=== PATIENT | female | born 1935 | race African-American/Black ===

== ENCOUNTER 2023-10-25 23:15 | Inpatient (IN) | payer MEDICARE, OTHER ==
[~2023-10-25] VITALS: Ht 172.7 cm; Wt 63.5 kg
[2023-10-25] MEDS ORDERED: DAPA5TAB PO (23:46)
[2023-10-25] MEDS ORDERED: INSU3INS6 SQ (23:46)
[2023-10-25] MEDS ORDERED: ATOR20TA PO (23:46)
[2023-10-25] MEDS ORDERED: HYDR25TA4 (23:46)
[2023-10-25] MEDS ORDERED: CLOP75TA33 PO (23:46)
[2023-10-25] MEDS ORDERED: AMLO5TAB4 PO (23:46)
[2023-10-25] MEDS ORDERED: ASPI81TA31 PO (23:46)
[2023-10-25 23:49] LABS: BASOPHILS % (AUTO) 0.2 % (0.0-2.0); EOSINOPHILS # (AUTO) 0.2 K/uL (0.0-0.7); EOSINOPHILS % (AUTO) 1.5 % (0.0-7.0); HEMOGLOBIN 9.3 g/dL (10.9-14.3); LYMPHOCYTES # (AUTO) 1.1 K/uL (0.8-4.8); LYMPHOCYTES % (AUTO) 10.5 % (20.5-51.5); MEAN CORPUSCULAR HEMOGLOBIN 27.7 uug (24.7-32.8); MEAN CORPUSCULAR HGB CONC 33 g/dL (32.3-35.6); MEAN CORPUSCULAR VOLUME 83.2 fL (75.5-95.3); MONOCYTES # (AUTO) 0.7 K/uL (0.1-1.30); MONOCYTES % (AUTO) 6.4 % (0.0-11.0); NEUTROPHILS # (AUTO) 8.5 K/uL (1.8-8.9); NEUTROPHILS % (AUTO) 81.4 % (38.5-71.5); PLATELET COUNT (AUTO) 139 K/uL (179-408); RED BLOOD CELL COUNT(AUTO) 3.36 MIL/uL (3.63-4.92); RED CELL DISTRIBUTION WIDTH 16.1 % (12.3-17.7); WHITE BLOOD COUNT (AUTO) 10.4 K/uL (3.8-11.8)
[2023-10-25] MEDS ORDERED: CEFTRIAXONE /D5W 50ML IVPB **ER PYXIS IV ONE (23:53)
[2023-10-25 23:55] LABS: DIFFERENTIAL COMMENT 1
[2023-10-25] MEDS: IV NORMAL SALINE 1000 ML BAG IV ONE (23:59)
[2023-10-25] MEDS: CEFTRIAXONE 1 G in IV DEXTROSE 5% 50 ML IV ONE (23:59)
[2023-10-26 00:01] LABS: CALCIUM 8.9 mg/dL (8.5-10.1); CARBON DIOXIDE 24 mmol/L (21-32); CHLORIDE 105 mmol/L (98-107); CREATININE 3.1 mg/dL (0.6-1.3); GLUCOSE 150 mg/dL (74-106); POTASSIUM 3.8 mmol/L (3.5-5.1); SODIUM SERUM 139 mmol/L (136-145); UREA NITROGEN, BLOOD 55 mg/dL (7-18)
[2023-10-26 00:18] LABS: ALKALINE PHOSPHATASE 66 U/L (50-136); ASPARTATE AMINOTRANSFERASE 8 U/L (15-37); BILIRUBIN,DIRECT 0.2 mg/dL (0.0-0.2); BILIRUBIN,TOTAL 0.7 mg/dL (0.2-1.0); NT-PRO BNP 2671 pg/mL (0-125); TOTAL PROTEIN, SERUM 7.7 g/dL (6.4-8.2)
[2023-10-26 00:19] LABS: ALANINE AMINOTRANSFERASE 6 U/L (14-59)
[2023-10-26 00:23] LABS: *BILIRUBIN,URIN NEGATIVE (NEGATIVE); *BLOOD, URINE 1+ (NEGATIVE); *COLOR,URINE YELLOW (YELLOW); *KETONES,URINE NEGATIVE (NEGATIVE); *PROTEIN,URINE NEGATIVE (NEGATIVE); *UROBILINOGEN,URINE 0.2 E.U./dl (NORMAL); LEUKOCYTE ESTERASE ,URINE 3+ (NEGATIVE); NITRITE, URINE NEGATIVE (NEGATIVE); UGLUCOSE TRACE (NEGATIVE)
[2023-10-26 00:31] LABS: *CLARITY,URINE SLIGHTLY CLOUDY (CLEAR)
[2023-10-26 01:27] LABS: BACTERIA,URINE MANY /HPF (NONE SEEN); SQUAMOUS EPITHELIAL CELL,UR NONE SEEN /HPF (NONE SEEN); WBC,URINE TNTC /HPF (0-3); YEAST,URINE MANY /HPF (NONE SEEN)
[2023-10-26] MEDS ORDERED: MAGNESIUM HYDROXIDE 30 ML LIQUID UDC PO PRN (01:45)
[2023-10-26] MEDS ORDERED: hydrALAZINE HCL 20 MG/1 ML VIAL IV PRN (01:45)
[2023-10-26] MEDS ORDERED: DEXTROSE 50% 50 ML DISP.SYRIN IV PRN (01:45)
[2023-10-26] MEDS ORDERED: ONDANSETRON 4 MG/2 ML VIAL IV PRN (01:45)
[2023-10-26] MEDS ORDERED: ACETAMINOPHEN 325 MG TABLET PO PRN (01:45)
[2023-10-26 04:03] VITALS: BP 148/61; TEMP 98; O2SAT 98
[2023-10-26] MEDS: IV NS 1000 ML 1,000 ML IV SCH (04:08)
[2023-10-26] MEDS ORDERED: CEFEPIME HCL 1 G VIAL ONE (05:41)
[2023-10-26] MEDS: CEFEPIME HCL 1 G in IV DEXTROSE 5% 50 ML IV ONE (05:50)
[2023-10-26] MEDS: BLOOD SUGAR DIAGNOSTIC 1 EACH STRIP VI SCH (06:43)
[2023-10-26 07:36] VITALS: BP 138/52; TEMP 98.2; O2SAT 98
[2023-10-26] MEDS: INSULIN REGULAR, HUMAN 300 UNIT/3 ML VIAL SQ PRN (08:32)
[2023-10-26] MEDS: CLOPIDOGREL 75 MG TABLET PO SCH (08:35)
[2023-10-26] MEDS: DOCUSATE SODIUM 100 MG CAPSULE PO SCH (08:35)
[2023-10-26] MEDS: HEPARIN SODIUM,PORCINE 5,000 UNITS/ML VIAL SQ SCH (08:36)
[2023-10-26] MEDS: ASPIRIN 81 MG TAB.CHEW PO SCH (08:40)
[2023-10-26] MEDS: AMLODIPINE 5 MG TABLET PO ONE (08:40)
[2023-10-26] MEDS ORDERED: HYDROCHLOROTHIAZIDE 25 MG TABLET PO SCH ×2 (09:00)
[2023-10-26] MEDS ORDERED: ATORVASTATIN 20 MG TABLET PO SCH (09:00)
[2023-10-26] MEDS ORDERED: AMLODIPINE 10 MG TABLET PO SCH (09:00)
[2023-10-26] MEDS ORDERED: AMLODIPINE 5 MG TABLET PO SCH (09:00)
[2023-10-26 11:33] VITALS: BP 114/60; TEMP 98.4; O2SAT 96
[2023-10-26] MEDS ORDERED: DOCU100T2 PO (11:57)
[2023-10-26] MEDS ORDERED: FERR-68 PO (11:59)
[2023-10-26] MEDS ORDERED: PANT40TA2 PO (12:05)
[2023-10-26] MEDS ORDERED: INSU100V28 SUBCUT (12:10)
[2023-10-26] MEDS ORDERED: CRAN450T9 PO (12:10)
[2023-10-26] MEDS ORDERED: CEFEPIME HCL 1 G in IV DEXTROSE 5% 50 ML IV SCH (14:00)
[2023-10-26 15:33] LABS: *BILIRUBIN,URIN NEGATIVE (NEGATIVE); *BLOOD, URINE 3+ (NEGATIVE); *CLARITY,URINE CLOUDY (CLEAR); *COLOR,URINE YELLOW (YELLOW); *KETONES,URINE NEGATIVE (NEGATIVE); *PROTEIN,URINE 2+ (NEGATIVE); *UROBILINOGEN,URINE 0.2 E.U./dl (NORMAL); LEUKOCYTE ESTERASE ,URINE 2+ (NEGATIVE); NITRITE, URINE NEGATIVE (NEGATIVE)
[2023-10-26 15:39] VITALS: BP 121/46; TEMP 99.1; O2SAT 99
[2023-10-26 15:47] LABS: *CREATININE,URINE 75.7 mg/dL (30-125); *URINE TOTAL PROTEIN RANDOM 109.3 mg/dL (<150/24HR)
[2023-10-26 15:55] LABS: UGLUCOSE 2+ (NEGATIVE)
[2023-10-26 16:12] LABS: BACTERIA,URINE MODERATE /HPF (NONE SEEN); RBC,URINE 20-50 /HPF (0-3); SQUAMOUS EPITHELIAL CELL,UR FEW /HPF (NONE SEEN); WBC,URINE 80-100 /HPF (0-3); YEAST,URINE BUDDING YEAST /HPF (NONE SEEN)
[2023-10-26 16:27] LABS: ALANINE AMINOTRANSFERASE 15 U/L (14-59); ALBUMIN 2.8 g/dL (3.4-5.0); ALKALINE PHOSPHATASE 67 U/L (50-136); ASPARTATE AMINOTRANSFERASE 7 U/L (15-37); BILIRUBIN,TOTAL 0.6 mg/dL (0.2-1.0); CALCIUM 8.6 mg/dL (8.5-10.1); CARBON DIOXIDE 24 mmol/L (21-32); CHLORIDE 106 mmol/L (98-107); CREATININE 2.6 mg/dL (0.6-1.3); GLUCOSE 182 mg/dL (74-106); POTASSIUM 3.7 mmol/L (3.5-5.1); SODIUM SERUM 141 mmol/L (136-145); TOTAL PROTEIN, SERUM 7.6 g/dL (6.4-8.2); UREA NITROGEN, BLOOD 46 mg/dL (7-18)
[2023-10-26 20:00] VITALS: TEMP 98
[2023-10-26] MEDS: ATORVASTATIN 20 MG TABLET PO SCH (20:49)
[2023-10-26] MEDS: INSULIN REGULAR, HUMAN 300 UNITS/3 ML VIAL SQ PRN (20:51)
[2023-10-27] VITALS (7 sets, daily range): BP systolic 106–145; BP diastolic 44–51; TEMP 98–98.6; O2SAT 96–99
[2023-10-27] MEDS: CEFEPIME HCL 1 G in IV DEXTROSE 5% 50 ML IV SCH (05:47)
[2023-10-27 07:24] LABS: BASOPHILS % (AUTO) 0.3 % (0.0-2.0); EOSINOPHILS # (AUTO) 0.4 K/uL (0.0-0.7); EOSINOPHILS % (AUTO) 4.8 % (0.0-7.0); HEMOGLOBIN 8.7 g/dL (10.9-14.3); LYMPHOCYTES # (AUTO) 0.8 K/uL (0.8-4.8); LYMPHOCYTES % (AUTO) 9.6 % (20.5-51.5); MEAN CORPUSCULAR HEMOGLOBIN 27.8 uug (24.7-32.8); MEAN CORPUSCULAR HGB CONC 33 g/dL (32.3-35.6); MEAN CORPUSCULAR VOLUME 83.6 fL (75.5-95.3); MONOCYTES # (AUTO) 0.5 K/uL (0.1-1.30); MONOCYTES % (AUTO) 6.2 % (0.0-11.0); NEUTROPHILS # (AUTO) 6.5 K/uL (1.8-8.9); NEUTROPHILS % (AUTO) 79.1 % (38.5-71.5); PLATELET COUNT (AUTO) 133 K/uL (179-408); RED BLOOD CELL COUNT(AUTO) 3.12 MIL/uL (3.63-4.92); RED CELL DISTRIBUTION WIDTH 15.6 % (12.3-17.7); WHITE BLOOD COUNT (AUTO) 8.2 K/uL (3.8-11.8)
[2023-10-27 07:42] LABS: DIFFERENTIAL COMMENT 1
[2023-10-27 07:45] LABS: ALANINE AMINOTRANSFERASE 15 U/L (14-59); ALBUMIN 2.4 g/dL (3.4-5.0); ALKALINE PHOSPHATASE 63 U/L (50-136); ASPARTATE AMINOTRANSFERASE 8 U/L (15-37); BILIRUBIN,TOTAL 0.5 mg/dL (0.2-1.0); CALCIUM 8.3 mg/dL (8.5-10.1); CARBON DIOXIDE 22 mmol/L (21-32); CHLORIDE 108 mmol/L (98-107); CREATINE KINASE, TOTAL 24 U/L (26-192); CREATININE 2.3 mg/dL (0.6-1.3); GLUCOSE 114 mg/dL (74-106); MAGNESIUM 2.4 mg/dL (1.8-2.4); PHOSPHOROUS 3.1 mg/dL (2.5-4.9); POTASSIUM 3.4 mmol/L (3.5-5.1); SODIUM SERUM 141 mmol/L (136-145); UREA NITROGEN, BLOOD 42 mg/dL (7-18)
[2023-10-27] MEDS: AMLODIPINE 5 MG TABLET PO SCH (09:29)
[2023-10-27] MEDS: POTASSIUM CHLORIDE 10 MEQ TAB.PRT.SR PO ONE (09:30)
[2023-10-27] MEDS ORDERED: POTASSIUM CHLORIDE 20 MEQ TAB.PRT.SR PO ONE (09:30)
[2023-10-27] MEDS ORDERED: TEMAZEPAM 15 MG CAPSULE PO PRN (21:30)
[2023-10-28] VITALS (7 sets, daily range): BP systolic 103–139; BP diastolic 44–62; TEMP 97.6–98.2; O2SAT 94–99
[2023-10-28 07:15] LABS: BASOPHILS % (AUTO) 0.4 % (0.0-2.0); EOSINOPHILS # (AUTO) 0.3 K/uL (0.0-0.7); EOSINOPHILS % (AUTO) 5.2 % (0.0-7.0); HEMATOCRIT 24.1 % (31.2-41.9); HEMOGLOBIN 8.1 g/dL (10.9-14.3); LYMPHOCYTES % (AUTO) 16.8 % (20.5-51.5); MEAN CORPUSCULAR HEMOGLOBIN 27.9 uug (24.7-32.8); MEAN CORPUSCULAR HGB CONC 34 g/dL (32.3-35.6); MEAN CORPUSCULAR VOLUME 83.1 fL (75.5-95.3); MONOCYTES # (AUTO) 0.6 K/uL (0.1-1.30); MONOCYTES % (AUTO) 9.6 % (0.0-11.0); NEUTROPHILS # (AUTO) 4.1 K/uL (1.8-8.9); PLATELET COUNT (AUTO) 137 K/uL (179-408); RED CELL DISTRIBUTION WIDTH 15.8 % (12.3-17.7)
[2023-10-28 07:30] LABS: CALCIUM 8.2 mg/dL (8.5-10.1); CARBON DIOXIDE 21 mmol/L (21-32); CHLORIDE 111 mmol/L (98-107); CREATININE 1.9 mg/dL (0.6-1.3); GLUCOSE 100 mg/dL (74-106); MAGNESIUM 2.4 mg/dL (1.8-2.4); PHOSPHOROUS 2.4 mg/dL (2.5-4.9); POTASSIUM 3.4 mmol/L (3.5-5.1); SODIUM SERUM 142 mmol/L (136-145); UREA NITROGEN, BLOOD 36 mg/dL (7-18)
[2023-10-28 07:44] LABS: DIFFERENTIAL COMMENT 1
[2023-10-28 08:06] LABS: PTH, INTACT 37 pg/mL (15-65)
[2023-10-28] MEDS: POTASSIUM CHLORIDE 10 MEQ TAB.PRT.SR PO ONE (12:39)
[2023-10-28] MEDS: NEUTRA PHOS PACKET PO ONE (16:07)
[2023-10-29] VITALS: BP 138/50; TEMP 97.8; O2SAT 95
[2023-10-29] MEDS: MORPHINE SULFATE 2 MG/1 ML DISP.SYRIN IVP PRN (01:36)
[2023-10-29 04:00] VITALS: BP 138/57; TEMP 97.6; O2SAT 95
[2023-10-29 07:40] LABS: CALCIUM 8.2 mg/dL (8.5-10.1); CARBON DIOXIDE 23 mmol/L (21-32); CHLORIDE 112 mmol/L (98-107); CREATININE 1.5 mg/dL (0.6-1.3); GLUCOSE 121 mg/dL (74-106); PHOSPHOROUS 2.8 mg/dL (2.5-4.9); POTASSIUM 3.7 mmol/L (3.5-5.1); SODIUM SERUM 143 mmol/L (136-145); UREA NITROGEN, BLOOD 35 mg/dL (7-18)
[2023-10-29 08:00] VITALS: BP 140/56; TEMP 98.1; O2SAT 96
[2023-10-29 12:02] VITALS: BP 133/45; TEMP 97.8; O2SAT 96
[2023-10-29 15:41] VITALS: BP 139/54; TEMP 97.5; O2SAT 97
[2023-10-29] MEDS: FLUCONAZOLE 200 MG/NS 100ML IV 100 MG in PREMIXED 1 EACH IV SCH (15:56)
[2023-10-29 20:00] VITALS: BP 142/52; TEMP 98.2; O2SAT 98
[2023-10-30 07:17] LABS: BASOPHILS # (AUTO) 0.1 K/UL (0.0-0.2); BASOPHILS % (AUTO) 1.1 % (0.0-2.0); EOSINOPHILS # (AUTO) 0.3 K/uL (0.0-0.7); EOSINOPHILS % (AUTO) 2.9 % (0.0-7.0); HEMATOCRIT 25.8 % (31.2-41.9); HEMOGLOBIN 8.3 g/dL (10.9-14.3); LYMPHOCYTES # (AUTO) 3.5 K/uL (0.8-4.8); MEAN CORPUSCULAR HGB CONC 32 g/dL (32.3-35.6); MONOCYTES # (AUTO) 2.1 K/uL (0.1-1.30); MONOCYTES % (AUTO) 20.3 % (0.0-11.0); NEUTROPHILS # (AUTO) 4.3 K/uL (1.8-8.9); NEUTROPHILS % (AUTO) 41.7 % (38.5-71.5); PLATELET COUNT (AUTO) 163 K/uL (179-408); RED BLOOD CELL COUNT(AUTO) 2.96 MIL/uL (3.63-4.92); RED CELL DISTRIBUTION WIDTH 16.3 % (12.3-17.7); WHITE BLOOD COUNT (AUTO) 10.2 K/uL (3.8-11.8)
[2023-10-30 07:24] LABS: DIFFERENTIAL COMMENT 1
[2023-10-30 07:34] LABS: CALCIUM 8.4 mg/dL (8.5-10.1); CARBON DIOXIDE 21 mmol/L (21-32); CHLORIDE 113 mmol/L (98-107); CREATININE 1.4 mg/dL (0.6-1.3); GLUCOSE 85 mg/dL (74-106); MAGNESIUM 2.3 mg/dL (1.8-2.4); PHOSPHOROUS 3.2 mg/dL (2.5-4.9); POTASSIUM 3.6 mmol/L (3.5-5.1); SODIUM SERUM 144 mmol/L (136-145); UREA NITROGEN, BLOOD 27 mg/dL (7-18)
[2023-10-30 11:28] VITALS: BP 136/49; TEMP 98.5; O2SAT 98
[2023-10-30] MEDS ORDERED: FLUC100T8 PO (11:47)
[2023-10-30 13:23] LABS: PLATELET ESTIMATE SLIGHT DECREASED
[2023-10-30 13:32] LABS: EOSINOPHILS % (MANUAL) 2 % (0-8); LYMPHOCYTES % (MANUAL) 34 % (20-40)
[2023-10-30 13:33] LABS: MONOCYTES % (MANUAL) 10 % (2-10); NEUTROPHILS % (MANUAL) 54 % (42-75)
== END 2023-10-30 16:35 | disposition home health service (06) | DRG 871 ==
LOC: ER 23:18 → TELE3 10-26 01:40 → MEDSURG3 10-29 13:05
PROVIDERS: ADMIT Internal Medicine; ATTEND Student in an Organized Health Care Education/Training Program
DX: A41.9 Sepsis, unspecified organism (principal); G92.8 Other toxic encephalopathy; N17.0 Acute kidney failure with tubular necrosis; J18.9 Pneumonia, unspecified organism; N39.0 Urinary tract infection, site not specified; I69.951 Hemiplegia and hemiparesis following unspecified cerebrovascular disease affecting right dominant side; E44.0 Moderate protein-calorie malnutrition; E86.0 Dehydration; F03.A0 Unspecified dementia, mild, without behavioral disturbance, psychotic disturbance, mood disturbance, and anxiety; E78.5 Hyperlipidemia, unspecified; Z79.4 Long term (current) use of insulin; Z79.82 Long term (current) use of aspirin; Z79.899 Other long term (current) drug therapy; I48.0 Paroxysmal atrial fibrillation; N25.0 Renal osteodystrophy; E11.22 Type 2 diabetes mellitus with diabetic chronic kidney disease; I12.9 Hypertensive chronic kidney disease with stage 1 through stage 4 chronic kidney disease, or unspecified chronic kidney disease; N18.9 Chronic kidney disease, unspecified; E87.6 Hypokalemia; D69.6 Thrombocytopenia, unspecified; D64.9 Anemia, unspecified; Z68.21 Body mass index [BMI] 21.0-21.9, adult; Z79.02 Long term (current) use of antithrombotics/antiplatelets; Z96.641 Presence of right artificial hip joint; R01.1 Cardiac murmur, unspecified; I44.7 Left bundle-branch block, unspecified
CPT/HCPCS: 36415; 70030-TC; 70450; 71045; 76770; 83605; 83735; 83970; 84100; 84155; 84165; 84300; 84484; 85025; 87040; 93005; 93307; G0378; J0692; J0696; J1450; J1644; J1815; J2270; J7040